=== PATIENT | female | born 1980 | race Caucasian/White ===

== ENCOUNTER → 2018-06-20 | Outpatient (CLI) | payer MEDICARE, OTHER, SELFPAY | PROVIDERS: PCP Internal Medicine; Visit Provider Nurse Practitioner | DX: R10.2 Pelvic and perineal pain (principal); N85.8 Other specified noninflammatory disorders of uterus | CPT/HCPCS: 76830; 76856 ==

== ENCOUNTER 2020-05-23 15:35 | Outpatient (CLI) | payer MEDICARE, OTHER, SELFPAY ==
--- NOTE | ~2020-05-23 | MM_ITS ---
EXAMINATION: MM screening roni BI w arjun HISTORY: Screening mammogram TECHNIQUE: Craniocaudal and mediolateral oblique 3-D tomosynthesis images were obtained and synthetic 2-D images were generated. CAD analysis was submitted and interpreted. COMPARISON: No prior mammogram is available for comparison at this institution. BREAST PARENCHYMAL COMPOSITION: There are scattered areas of fibroglandular density. FINDINGS: There is no evidence of suspicious mass, calcification, or architectural distortion to sugg est malignancy in either breast. There has been no suspicious interval change. IMPRESSION: 1. No mammographic evidence of malignancy. 2. Recommend routine screening mammography in one year. BI-RADS Category 1: Negative Reviewed, dictated and finalized at location A. [facility]
== END 2020-05-23 15:36 | disposition home or self-care (01) ==
LOC: ANHIMG 15:37
PROVIDERS: PCP Internal Medicine; Visit Provider Student in an Organized Health Care Education/Training Program
DX: Z12.31 Encounter for screening mammogram for malignant neoplasm of breast (principal)
CPT/HCPCS: 77063; 77067

== ENCOUNTER 2020-11-07 11:35 | Outpatient (CLI) | payer MEDICARE, OTHER, SELFPAY ==
[2020-11-07 12:11] LABS: Basophils Absolute Auto 0.1 K/mm3 (0.0-0.1); Basophils Percent Auto 0.7 % (0.2-1.2); Eosinophils Absolute Auto 0.1 K/mm3 (0-0.3); Eosinophils Percent Auto 1.5 % (0-4.4); Hematocrit 44.1 % (37.0-47.0); Hemoglobin 14.3 g/dL (12.0-15.0); Immature Granulocyte Absolute 0.05 K/mm3 (0.00-0.031); Immature Granulocyte Percent A 0.7 % (0-0.5); Lymphocytes Absolute Auto 2.06 K/mm3 (0.9-3.2); Lymphocytes Percent Auto 27.2 % (18.3-44.2); Mean Corpuscular HGB Conc 32.4 g/dl (32-36); Mean Corpuscular Hemoglobin 28.5 pg (26-34); Mean Corpuscular Volume 87.8 fl (80-100); Mean Platelet Volume 9.6 fl (7.4-10.4); Monocytes Absolute Auto 0.5 K/mm3 (0.1-0.6); Monocytes Percent Auto 6.9 % (2.6-8.5); Neutrophils Absolute Auto 4.8 K/mm3 (1.3-6.7); Platelet Count Result 283 k/mm3 (150-375); Red Blood Count 5.02 M/mm3 (4.2-5.4); Red Cell Distribution Width 13.2 % (11.5-14.5); White Blood Count 7.6 K/mm3 (4.5-10.0)
[2020-11-07 12:29] LABS: Sodium 137 mmol/L (137-145)
[2020-11-07 12:32] LABS: Alanine Aminotransferase 23 U/L (4-35); Albumin Level 4.7 g/dL (3.5-5.1); Alkaline Phosphatase 84 U/L (38-126); Anion Gap 11 mmol/L (8-16); Aspartate Amino Transferase 23 U/L (14-36); Bilirubin,Total 0.6 mg/dL (0.2-1.3); Blood Urea Nitrogen 14 mg/dL (7-17); Calcium 9.6 mg/dL (8.4-10.2); Carbon Dioxide 24 mmol/L (22-30); Chloride 102 mmol/L (98-107); Cholesterol 217 mg/dL (0-200); Estimated Glomerular Filt Rate > 60; Glucose 108 mg/dL (65-110); HDL Direct 48 mg/dL; Potassium 4.1 mmol/L (3.4-5.0); Triglycerides 161 mg/dL (<150)
[2020-11-07 12:41] LABS: LDL Cholesterol Direct 119 mg/dL
== END 2020-11-07 11:36 | disposition home or self-care (01) ==
LOC: ANHLAB 11:42
PROVIDERS: PCP Internal Medicine; Visit Provider Nurse Practitioner
DX: Z13.228 Encounter for screening for other metabolic disorders (principal); Z13.220 Encounter for screening for lipoid disorders
CPT/HCPCS: 36415; 80053; 80061; 85025

== ENCOUNTER 2021-01-19 12:53 | Outpatient (CLI) | payer OTHER, MEDICARE, SELFPAY ==
--- NOTE | ~2021-01-19 | US_ITS ---
EXAMINATION: US pelvic complete w TV DATE: 01/19/2021 14:25 INDICATION: Hypertrophy of the uterus TECHNIQUE: Multiple transabdominal and endovaginal sonographic images of the pelvis were obtained. COMPARISON: 06/20/2018 FINDINGS: The uterus measures 12.0 x 5.4 x 8.7 cm. There appears to be a small amount of persistent f luid in the endometrial canal in the uterine fundus. The endometrial complex measures 6 mm. The right ovary measures 4.1 x 3.2 x 3.0 cm. The left ovary measures 3.1 x 2.8 x 2.4 cm. There is normal vascu lar flow in the ovaries. There is no free fluid in the pelvis. IMPRESSION: 1. Small amount of persistent fluid in the endometrial canal in the uterine fundus. Reviewed, dictated and finalized at location A. IMPRESSION: 1. Small amount of persistent fluid in the endometrial canal in the uterine fun dus.
== END 2021-01-19 12:54 | disposition home or self-care (01) ==
PROVIDERS: PCP Internal Medicine; Visit Provider Student in an Organized Health Care Education/Training Program
DX: N85.2 Hypertrophy of uterus (principal)
CPT/HCPCS: 76830; 76856

== ENCOUNTER 2023-10-03 11:14 | Emergency (ER) | payer BC, SELFPAY ==
[2023-10-03] VITALS (7 sets, daily range): BP systolic 113–132; BP diastolic 76–107; PULSE 81–109; RESP 12–21; TEMP 36.4–36.6; O2SAT 97–100
--- NOTE | ~2023-10-03 | XR_ITS ---
EXAMINATION: XR abdomen gastric tube insert DATE: 10/03/2023 15:33 INDICATION: Nasogastric tube placement TECHNIQUE: A supine view of the abdomen and lower chest was obtained for evaluation of feeding tube placement. COMPARISON: None. FINDINGS: Nasogastric tube tip in proximal side port in the body of the stomach. Cholecystectomy clips in right upper quadrant. No dilated loops of gas-filled bowel in the visualized abdomen. There are some excre jose daniel contrast in the renal collecting systems from the median prior contrast enhanced CT . Lung bases are clear. Heart size is normal. IMPRESSION: 1. Nasogastric tube in the stomach. Reviewed, dictated and finalized at location A.
--- NOTE | ~2023-10-03 | CT_ITS ---
EXAMINATION: CT abdomen pelvis w con DATE: 10/03/2023 12:56 INDICATION: Generalized abdominal pain. Emesis. TECHNIQUE: Computed tomography (CT) of the abdomen and pelvis was performed with 100 mL Omnipaque 350 intravenous contrast. Automated exposure control and iterative reconstruction technique were employe d. The dose-length product was 522.47 mGy-cm. COMPARISON: CT abdomen and pelvis 04/22/2019 FINDINGS: The visualized portions of the lung bases are clear without pneumonia or pleural effusion. The heart size is normal. No pericardial effusion. There is a small sliding hiatal hernia. The liver and spleen are normal. There are changes of cholecystectomy. The pancreas, adrenal glands, and kidney s are normal. The appendix is not visualized. There are dilated loops of small bowel in right abdomen with proximal and distal transition points in close proximity best seen on coronal images. There are no pathologically enlarged lymph nodes. There is no free intraperitoneal fluid. The uterus is enlarg ed, likely secondary to fibroids. There is mild thoracic and lumbar spondylosis. IMPRESSION: 1. Closed-loop small bowel obstruction. Reviewed, dictated and finalized at location A.
[2023-10-03 12:11] LABS: Basophils Absolute Auto 0.1 K/mm3 (0.0-0.1); Basophils Percent Auto 0.7 % (0.2-1.2); Eosinophils Absolute Auto 0.3 K/mm3 (0-0.3); Eosinophils Percent Auto 2.5 % (0-4.4); Hematocrit 42.7 % (37.0-47.0); Hemoglobin 14.2 g/dL (12.0-15.0); Immature Granulocyte Absolute 0.11 K/mm3 (0.00-0.031); Immature Granulocyte Percent A 1.1 % (0-0.5); Lymphocytes Absolute Auto 2.34 K/mm3 (0.9-3.2); Lymphocytes Percent Auto 23.6 % (18.3-44.2); Mean Corpuscular HGB Conc 33.3 g/dl (32-36); Mean Corpuscular Hemoglobin 29.2 pg (26-34); Mean Corpuscular Volume 87.9 fl (80-100); Mean Platelet Volume 9.5 fl (7.4-10.4); Monocytes Absolute Auto 0.6 K/mm3 (0.1-0.6); Monocytes Percent Auto 5.6 % (2.6-8.5); Neutrophils Absolute Auto 6.6 K/mm3 (1.3-6.7); Neutrophils Percent Auto 66.5 % (45.5-73.1); Platelet Count Result 280 k/mm3 (150-375); Red Blood Count 4.86 M/mm3 (4.2-5.4); Red Cell Distribution Width 12.5 % (11.5-14.5); White Blood Count 9.9 K/mm3 (4.5-10.0)
--- NOTE | 2023-10-03 12:25 | ECG_ITS ---
Test Date: 2023-10-03 13:09:40 Measurements Intervals [place] Rate: 83 P: 64 WA: 144 QRS: 62 QRSD: 88 T: 59 QT: 367 QTc: 433 Interpretive Statements SINUS RHYTHM WITH SINUS ARRHYTHMIA NORMAL ECG No previous ECG available for comparison Electronically Signed On 10-03-2023 16:09:37 CDT by Juaquin Figueroa M.D.
[2023-10-03 12:38] LABS: Alanine Aminotransferase 12 U/L (6-35); Albumin Level 4.6 g/dL (3.5-5.1); Alkaline Phosphatase 61 U/L (38-126); Anion Gap 9 mmol/L (4-12); Aspartate Amino Transferase 19 U/L (14-36); Bilirubin,Total 0.6 mg/dL (0.2-1.3); Blood Urea Nitrogen 10 mg/dL (7-17); Calcium 9.7 mg/dL (8.4-10.2); Carbon Dioxide 23 mmol/L (22-30); Chloride 109 mmol/L (98-107); Estimated CRCL calculation 87 ml/min; Estimated Glomerular Filt Rate > 60; Glucose 127 mg/dL (65-110); Lipase 178 U/L (23-300); Sodium 141 mmol/L (137-145)
[2023-10-03] MEDS: SODIUM CHLORIDE 0.9% IV 1,000 ML 999 ML IV CONT (12:43)
[2023-10-03] MEDS: KETOROLAC 30 MG/ML VIAL (*BKC) 15 MG IV PUSH (12:43)
[2023-10-03] MEDS: ONDANSETRON INJ 4 MG/2 ML VIAL IV PUSH ×3 (12:43→18:40)
[2023-10-03] MEDS: fentaNYL CITRATE INJ (*CRX) 100 MCG/2 ML VIAL 50 MCG IV PUSH (12:44)
--- NOTE | 2023-10-03 12:45 | PC.NURSE ---
pt to CT scan via stretcher at this time, fluids infusing
--- NOTE | 2023-10-03 13:01 | ED.ABDPAIN ---
HPI - Abdominal Pain General Chief Complaint: Abdominal Pain <Toño Ireland III, DO - Last Filed: 10/09/23 07:41> Stated Complaint: chrons flair up <Toño Ireland III, DO - Last Filed: 10/09/23 07:41> Time Seen by Provider: 10/03/23 12:20 <Toño Ireland LEEROY, DO - Last Filed: 10/09/23 07:41> History of Present Illness HPI narrative: Pt presents with upper abdominal pain since last night aftert eating [employer]. Pt has had a cholecystectomy and has a history of Crohn's disease but this feels different. Pt is nauseated but denies diarrhea or vomiting. <Toño Ireland LEEROY, DO - Last Filed: 10/09/23 07:41> Related Data Allergies/Adverse Reactions: Allergies Allergy/AdvReac Type Severity Reaction Status Date / Time adalimumab Allergy Unknown Unknown Verified 10/03/23 12:03 ciprofloxacin Allergy Unknown Unknown Verified 10/03/23 12:03 escitalopram Allergy Unknown Unknown Verified 10/03/23 12:03 infliximab Allergy Unknown Unknown Verified 10/03/23 12:03 levofloxacin Allergy Unknown Unknown Verified 10/03/23 12:03 methotrexate Allergy Unknown Unknown Verified 10/03/23 12:03 Sulfa (Sulfonamide Allergy Unknown unknown Verified 10/03/23 12:03 Antibiotics) <Toño Ireland III, DO - Last Filed: 10/09/23 07:41> Review of Systems Review of Systems: All systems reviewed & are unremarkable except as noted in HPI and below <Toño Ireland LEEROY, DO - Last Filed: 10/09/23 07:41> [facility] Past Medical History Medical History: Medical History Anal fistula Crohn's disease CTS (carpal tunnel syndrome) Diverticular disease Hepatic steatosis Peripheral neuropathy Tumor left shoulder, removed <Toño Ireland III, DO - Last Filed: 10/09/23 07:41> Surgical History Surgical History: Surgical History H/O prior ablation treatment uterine ablation H/O tubal ligation History of incisional hernia repair History of intestinal surgery intestinal resection History of partial thyroidectomy Hx of cholecystectomy <Toño Robin Ireland III, DO - Last Filed: 10/09/23 07:41> Family History Family History: Family History Father Diabetes mellitus Heart disease Grandparent Cancer of unknown origin Other Cerebrovascular accident Family history of malignant neoplasm Hypertension <Toño Robin Ireland III, DO - Last Filed: 10/09/23 07:41> Social History Social History: Social History Smoking status: Former smoker Smoking end date: 04/15/08 Alcohol intake: never <Toño Robin Ireland III, DO - Last Filed: 10/09/23 07:41> Exam Const: General: healthy appearing and no acute distress <Toño Robin Ireland III, DO - Last Filed: 10/09/23 07:41> Nutritional Appearance: well nourished <Toño Robin Ireland III, DO - Last Filed: 10/09/23 07:41> Orientation/consciousness: patient oriented x3 <Toño Robin Ireland III, DO - Last Filed: 10/09/23 07:41> Limitations: no limitations <Toño Robin Ireland III, DO - Last Filed: 10/09/23 07:41> Neck: Neck: normal visual inspection <Toño Robin Ireland III, DO - Last Filed: 10/09/23 07:41> Resp: Effort & Inspection: normal respiratory effort <Toño Robin Ireland III, DO - Last Filed: 10/09/23 07:41> Auscultation: clear to auscultation bilaterally <Toño Robin Ireland III, DO - Last Filed: 10/09/23 07:41> Cardio: Rate: regular rate <Toño Robin Ireland III, DO - Last Filed: 10/09/23 07:41> Rhythm: regular rhythm <Toño Robin Ireland III, DO - Last Filed: 10/09/23 07:41> GI: GI Palp: Yes Soft to palpation and Yes Tenderness to palpation present (GI) (epigastric and RUQ) <Toño Robin Ireland III, DO - Last Filed: 10/09/23 07:41> Auscultation: normal bowel sounds <Toño Robin Ireland III, DO - Last Filed: 10/09/23 07:41> S
[2023-10-03 13:27] LABS: Troponin I < 0.012 ng/mL (0.000-0.034)
[2023-10-03 14:07] LABS: INR 0.9; Prothrombin Time 12.5 Seconds (11.1-14.7)
[2023-10-03 14:11] LABS: Partial Thromboplastin Time 23.3 Seconds (22.3-36.8)
[2023-10-03] MEDS: HYDROmorphone HCL INJ (*CRX) 1 MG/ML SYR 0.5 MG IV PUSH ×2 (14:40→18:40)
--- NOTE | 2023-10-03 15:19 | PM.CNGS ---
Assessment and Plan Assessment and plan (1) Small bowel obstruction: Code(s): K56.609 - Unspecified intestinal obstruction, unspecified as to partial versus complete obstruction Status: Acute Assessment and Plan: The patient has a complicated surgical history with multiple previous abdominal surgeries and presents with a small bowel obstruction. CT scan suggests a closed-loop obstruction, which would have a higher risk for bowel strangulation and perforation. She also has a history of Crohn's disease that has been untreated for 2 years due to insurance issues. She has been trying to manage her Crohn's disease with her diet. Her extensive surgical history and untreated Crohn's disease complicates her acute illness, and we would recommend transfer to a tertiary care facility that could also help manage her Crohn's disease. Dr. Ledesma discussed these recommendations with the ER physician. (2) Crohn's disease: Qualifiers: Digestive disease complication type: without complication Gastrointestinal tract location: unspecified location Qualified Code(s): K50.90 - Crohn's disease, unspecified, without complications Code(s): K50.90 - Crohn's disease, unspecified, without complications Status: Acute Assessment and Plan: Crohn's disease that has been untreated for 2 years. She has not seen a GI physician due to insurance issues and has been trying to manage her Crohn's symptoms with her diet. She reports extensive history of multiple fistulas, bowel obstructions with one that resulted in a bowel resection, and multiple trials of medications that resulted in adverse reactions. (3) History of major abdominal surgery: Code(s): Z98.890 - Other specified postprocedural states Status: Acute Assessment and Plan: She initially had a bowel resection due to a bowel obstruction secondary to her Crohn's disease and eventually developed an incisional hernia that was repaired with a component separation. She then had a laparoscopic cholecystectomy 2 years later with the operative note mentioning extensive intraabdominal adhesions requiring adhesiolysis for greater than an hour. Plan I have discussed the patient's case and plan of care with Dr. Ledesma. History of Present Illness Consult details Consult date: 10/03/23 Reason for consult: other (Small bowel obstruction) Requesting physician: Silverio Shaw MD Narrative: This is a 43-year-old woman with a history of Crohn's disease, Geremias's, and multiple previous abdominal surgeries. She presented to the ER today with complaints of upper abdominal pain that started last night around 6:00 pm. This happened very quickly after eating dinner last night. She had pain throughout the night and tried to drink coffee this morning, which aggravated her pain and she immediately began vomiting. She came into the ER. Vital signs are stable with mild tachycardia. Her heart rate is in the low 100's. Labs were unremarkable with a normal white blood cell count. No lactic acid ordered. CT scan of the abdomen and pelvis showed a closed loop small bowel obstruction. Our service was consulted by the ED physician and she is now seen in the ER. She reports a long-standing history of Crohn's disease that has been treated with multiple medications that all lead to severe adverse reactions. She eventually stopped taking her medications and has not seen a GI physician in 2 years due to insurance issues. She has a history of multiple fistulas related to her Crohn's and a bowel obstruction that resulted in laparotomy with a bowel resection years ago. She developed an incisional hernia and had an incisional hernia repair with component separation [place] [address] Johnson. She then had a laparoscopic cholecystectomy in [address] Golden with extensive intraabdominal adhesions requiring adhesiolysis for more than an hour. Review of Systems Review of Systems: All systems reviewed & are unremarkabl
[2023-10-03 15:45] LABS: Appearance Urine Clear (Clear); Bilirubin Urine Negative (Negative); Blood Urine Negative (Negative); Color Urine Yellow (Yellow); Glucose Urine UA Negative (Negative); Ketones Urine Trace mg/dL (Negative); Leukocyte Esterase Ur Negative LEU/UL (Negative); Nitrate Urine Negative (Negative); Protein Urine Negative (Negative); Urobilinogen Urine 0.2 mg/dL (<2.0)
[2023-10-03 16:20] LABS: Add Urine Microscopic? NO; Specific Grav Ur 1.057 (1.001-1.035)
--- NOTE | 2023-10-03 16:49 | PC.NURSE ---
Vikki with [facility] calling for more information on pt. will call back when they have a bed.
--- NOTE | 2023-10-03 19:37 | PC.NURSE ---
pt requesting more pain medication. Dr. Shaw made aware. Dr. Shaw states he is not ordering any more pain medication at this time.
== END 2023-10-03 22:12 | disposition short-term general hospital (02) ==
PROVIDERS: Emergency Medicine; Student in an Organized Health Care Education/Training Program; Emergency Provider Emergency Medicine; PCP Internal Medicine
DX: K56.609 Unspecified intestinal obstruction, unspecified as to partial versus complete obstruction (principal); K50.90 Crohn's disease, unspecified, without complications; E06.3 Autoimmune thyroiditis; G62.9 Polyneuropathy, unspecified; Z90.49 Acquired absence of other specified parts of digestive tract; E89.0 Postprocedural hypothyroidism; Z87.891 Personal history of nicotine dependence
CPT/HCPCS: 36415; 74177; 80053; 81003; 81025; 83690; 84484; 85025; 85610; 85730; 93005; 96361; 96374; 96375; 96376; 99285; J1170; J1885; J2405; J3010; J7030; Q9967